=== PATIENT | male | born 1990 | race Caucasian/White ===

== ENCOUNTER 2023-02-07 12:01 | Emergency (ER) | payer MEDICAID ==
[~2023-02-07] VITALS: Ht 165.1 cm; Wt 72.6 kg
--- NOTE | 2023-02-07 12:01 | NUR ---
32 y/o M BIBS FOR RECTAL BLEEDING. A/O X 3, ABLE TO MAKE NEEDS KNOWN, TOLERATING WELL ON ROOM AIR.
--- NOTE | 2023-02-07 12:56 | NUR ---
Patient left without being seen by ER Physician
[2023-02-07 12:58] VITALS: BP 118/74; TEMP 98.2
== END 2023-02-07 13:11 | disposition left against medical advice (07) ==
LOC: ER 12:05
DX: K62.5 Hemorrhage of anus and rectum (principal)